=== PATIENT | female | born 1980 | race Caucasian/White ===

== ENCOUNTER 2018-04-15 08:06 | Outpatient (CLI) | payer OTHER ==
--- NOTE | 2018-04-15 11:24 | MRI ---
MRI LUMBAR SPINE: History: Lumbar radiculopathy, M51.17, intervertebral disc disorder. Technique: Multiplanar, multisequence noncontrast enhanced MRI images were obtained of the lumbar spi ne. FINDINGS: For the purposes of this dictation the last freely mobile vertebral body will be considered to be the L5 vertebral body. All vertebral bodies are numbered according to this. There is disc desiccation and a broad based central disc protrusion at the T11-12 level. T12-L1: Unremarkable. L1-2: There is some disc desiccation. There is a mild broad based disc bulge with bilateral facet hyp ertrophy. No significant degree of central stenosis seen. The neural foramen are patent. L2-3 and L3-4: Unremarkable. L4-5: Disc desiccation is seen. There is a broad based disc bulge with bilateral facet and ligamentum flavum hypertrophy. This results in a moderate degree of central and lateral recess stenosis. Mild b ilateral neural foraminal narrowing is seen. L5-S1: Mild facet hypertrophy is seen. Incidentally noted left ovarian cyst or cystic lesion is seen with the diameter measuring approximate ly 2.5 x 2.1 cm. Correlation with pelvic sonography may be of use. In addition, correlation with foll ow up sonographic evaluation in 3-4 months to evaluate for left ovary lesion resolution is recommende d. IMPRESSION: Disc degenerative and desiccation with broad based disc bulges at T11-12, L1-2, and L4-5 levels. POS: TOÑA
== END 2018-04-15 08:07 | disposition home or self-care (01) ==
LOC: SCSMRI 08:06
PROVIDERS: ATTEND Specialist
DX: M51.17 Intervertebral disc disorders with radiculopathy, lumbosacral region (principal); M51.15 Intervertebral disc disorders with radiculopathy, thoracolumbar region
CPT/HCPCS: 72148

== ENCOUNTER 2018-11-11 08:11 | Outpatient (CLI) | payer OTHER ==
--- NOTE | 2018-11-11 09:10 | RAD ---
CERVICAL SPINE SERIES THREE VIEWS WITH FLEXION AND EXTENSION: HISTORY: Neck pain. FINDINGS: The vertebral bodies are normal in height. Very minimal disk narrowing is seen at C5-C6. In flexion , there is no anterolisthesis, although the widening is most pronounced at the C5-C6 level, and exten anastacio of very subtle retrolisthesis develops at the C5-C6 level. IMPRESSION: Minimal disk narrowing at C5-C6. The center of flexion appears to be at this level, with more promin ent movement of the facet joint at this level, but no anterolisthesis. In extension, there is very m inimal retrolisthesis that develops. POS: [facility]
== END 2018-11-11 08:12 | disposition home or self-care (01) ==
LOC: RAD 08:11
PROVIDERS: ATTEND Nurse Practitioner Family
DX: M50.122 Cervical disc disorder at C5-C6 level with radiculopathy (principal)
CPT/HCPCS: 72040

== ENCOUNTER 2019-07-03 11:10 | Outpatient (CLI) | payer OTHER ==
--- NOTE | 2019-07-03 13:55 | RAD ---
RIGHT HAND 3 VIEWS: DATE: 07/03/2019. COMPARISON: None. HISTORY: Pain in the right 2nd metacarpal for a month. FINDINGS: No displaced fracture or evidence of dislocation. No radiopaque foreign body or subcutaneous gas. M ild degenerative change noted at the 2nd metacarpophalangeal joint. Punctate density is seen distal to the ulnar styloid which may represent a remote fracture fragment. IMPRESSION: No acute fracture or dislocation. POS: OFF
== END 2019-07-03 11:11 | disposition home or self-care (01) ==
LOC: RAD 11:10
PROVIDERS: ATTEND Family Medicine
DX: M79.641 Pain in right hand (principal)

== ENCOUNTER 2019-07-24 09:30 | Outpatient (CLI) | payer OTHER ==
--- NOTE | 2019-07-24 13:04 | MRI ---
MRI RIGHT HAND: DATE: 07/24/2019. PROVIDED CLINICAL HISTORY: Right index finger pain and palpable abnormality. FINDINGS: There is a circumscribed focus of true fluid signal intensity at the volar margin of the 2nd metacarp al base at the level of the 2nd CMC joint. This measures approximately 7 mm in greatest transverse d imension and approximately 7 mm in craniocaudal dimension. This is interposed between the volar charity ex of the base of the 2nd metacarpal and the flexor pollicis longus tendon. Regional marrow and muscular signal all appear normal. The dorsal extensor and volar flexor tendons demonstrate an intact MR appearance. No regional joint effusion is evident. The MCP and IP joints a ppear normal. IMPRESSION: Findings compatible with ganglion cyst at the volar aspect of the 2nd carpometacarpal joint. POS: OFF
== END 2019-07-24 09:31 | disposition home or self-care (01) ==
LOC: SCSMRI 09:30
PROVIDERS: ATTEND Orthopaedic Surgery Hand Surgery
DX: S66.510A Strain of intrinsic muscle, fascia and tendon of right index finger at wrist and hand level, initial encounter (principal); S53.439A Radial collateral ligament sprain of unspecified elbow, initial encounter; D17.21 Benign lipomatous neoplasm of skin and subcutaneous tissue of right arm

== ENCOUNTER 2020-01-04 08:49 | Outpatient (CLI) | payer OTHER ==
--- NOTE | 2020-01-04 10:02 | MRI ---
MRI RIGHT KNEE PERFORMED WITHOUT CONTRAST ENHANCEMENT: Date: 01/04/2020 HISTORY: Posterior right knee pain. FINDINGS: The anterior and posterior cruciate ligaments are intact. The medial, as well as lateral menisci are normal in shape and appearance. The medial and lateral collateral ligaments, and iliotibial band regions appear unremarkable. Patellar articular cartilage shows some slight articular cartilage fibrillation of the lateral facet of the patella near the apex of the patella. Some minimal surface irregularity. The medial and latera l patellar retinaculum and quadriceps and patellar tendons are normal. IMPRESSION: 1. No evidence of meniscal or cruciate ligament injury. 2. Some minimal articular surface irregularity to the lateral facet of the patella. POS: [facility]
== END 2020-01-04 08:50 | disposition home or self-care (01) ==
LOC: SCSMRI 08:49
PROVIDERS: ATTEND Orthopaedic Surgery
DX: M25.561 Pain in right knee (principal); M89.8X6 Other specified disorders of bone, lower leg

== ENCOUNTER 2020-03-01 08:30 | Outpatient (CLI) | payer OTHER ==
--- NOTE | 2020-03-01 09:38 | MRI ---
MRI Cervical spine without contrast: HISTORY: Neck pain with numbness of left arm. Cervical radicular pain. COMPARISON: None FINDINGS: The craniocervical junction is unremarkable. No significant cord signal abnormality. Paravertebral soft tissues have a normal appearance and normal signal intensity. Horizontal linear signal intensity focus is seen at the junction of the odontoid with C2 vertebral martita dy most compatible with synchondrosis. Normal signal intensity is otherwise demonstrated in the bone marrow. There is straightening of the normal cervical lordotic curvature which may be related to positioning or muscle spasm. C1-2:No significant stenosis. C2-3: There is no disc bulge or disc herniation. The central spinal canal and neural foramina are pat ent. C3-4: There is no disc bulge or disc herniation. The central spinal canal and neural foramina are pat ent. C4-5: There is no disc bulge or disc herniation. The central spinal canal and neural foramina are pat ent. C5-6: Mild loss of intervertebral disc height. Broad-based disc osteophyte complex is present with ri ght paracentral disc protrusion/uncinate process hypertrophy. Findings result in effacement of the ventral subarachnoid space with mild encroachment on the anterior aspect of the spinal cord. Mild dillon ateral neural foraminal narrowing is present greater on the left. C6-7: Mild broad-based disc osteophyte complex narrowing the ventral subarachnoid space with slight f lattening of the anterior aspect of the spinal cord. Neural foramina are patent. C7-T1: There is no disc bulge or disc herniation. The central spinal canal and neural foramina are pa tent. IMPRESSION: Mild disc degenerative changes at the C5-6 and C6-7 levels.
== END 2020-03-01 08:31 | disposition home or self-care (01) ==
LOC: SCSMRI 08:30
PROVIDERS: ATTEND Neurological Surgery
DX: M47.22 Other spondylosis with radiculopathy, cervical region (principal)
CPT/HCPCS: 72141

== ENCOUNTER 2020-03-04 06:49 | Outpatient (CLI) | payer OTHER ==
[2020-03-04 16:58] LABS: #Lymphocytes 2.1 thou/uL (1.20-3.40); #Monocytes 0.7 thou/uL (0.11-0.59); #Neutrophils 8.3 thou/uL (1.40-6.50); %Basophils 0.4 % (0.0-1.0); %Eosinophils 0.4 % (0.0-10.0); %Lymphocytes 18.5 % (21.0-51.0); %Monocytes 5.9 % (0.0-10.0); %Neutrophils 74.8 % (42.0-75.0); Mean Corpuscular HGB CONC 31.2 g/dL (32.0-36.0); Mean Corpuscular Hemoglobin 29.4 pg (27.0-31.0); Mean Corpuscular Volume 94.2 fL (78.0-98.0); Mean Platelet Volume 8.5 fL (7.4-10.4); Platelet Count 261 thou/uL (130-400); RBC Distribution Width 12.2 % (11.5-14.5); Red Blood Cell (RBC) Count 5.11 mill/uL (4.20-5.40); White Blood Cell (WBC) Count 11.1 thou/uL (4.8-10.8)
[2020-03-04 17:02] LABS: BHCG - Serum Negative (NEGATIVE); Pregs Control Background? CLEAR/WHITE (CLR/WHITE); Pregs Control Bar Appear? YES (CONTROL BAR)
[2020-03-04 17:08] LABS: Bacteria/HPF None Seen HPF (None Seen); Bilirubin Negative (Negative); Blood, Urine Negative (Negative); Clarity Clear (Clear); Glucose, Urine (Dipstick) Normal (Negative); Leukocyte Negative Leu/uL (Negative); Mucous/LPF Rare LPF (<2+); Nitrite Negative (Negative); Protein, Urine (Dipstick) Negative (Neg-Trace); RBC/HPF 0-3 HPF (0-3); Squamous Epithelial 0-3 HPF (0-3); Urobilinogen Normal mg/dL (Less than 2); WBC/HPF 0-3 HPF (0-3)
[2020-03-05 17:22] LABS: SARS-CoV-2 MS2 Positive; SARS-CoV-2 N Gene Negative; SARS-CoV-2 S Gene Negative; SARS-CoV-2 orf1ab Negative
== END 2020-03-04 06:50 | disposition home or self-care (01) ==
LOC: LABBT 06:49
PROVIDERS: ATTEND Orthopaedic Surgery Hand Surgery
DX: Z01.812 Encounter for preprocedural laboratory examination (principal); Z11.59 Encounter for screening for other viral diseases; G56.01 Carpal tunnel syndrome, right upper limb; M67.431 Ganglion, right wrist
CPT/HCPCS: 81001; 84703; 85025; 87635; U0003

== ENCOUNTER 2020-03-08 06:26 | Day surgery (SDC) | payer OTHER ==
[2020-03-04 15:00] VITALS: BMI 36.0
[2020-03-08] MEDS ORDERED: Bupivacaine PF 0.5% 30 ML VIAL ONE (08:19)
[2020-03-08] MEDS ORDERED: Bacitracin Zinc Ointment 30 gm TUBE ONE (08:19)
[2020-03-08] MEDS ORDERED: Betamet Acet/Betamet Na Ph 30 MG/5 ML VIAL ONE (08:19)
[2020-03-08] MEDS ORDERED: Fentanyl 100 MCG/2 ML VIAL ONE (08:20)
[2020-03-08] MEDS ORDERED: Midazolam HCl 2 mg/2 ml Vial ONE (08:34)
[2020-03-08] MEDS ORDERED: Famotidine/PF 20 mg/2ml Vial ONE (08:41)
[2020-03-08] MEDS ORDERED: Ketorolac Tromethamine 30 MG/ML VIAL ONE ×2 (10:18→12:46)
[2020-03-08] MEDS ORDERED: Dexamethasone 20 MG/5 ML VIAL ONE (12:46)
[2020-03-08] MEDS ORDERED: PHENYLEPHRINE-NS 100 MCG/ML 10 ML SYRINGE ONE (12:46)
[2020-03-08] MEDS ORDERED: Ondansetron PF 4 MG/2 ML Vial ONE (12:46)
[2020-03-08] MEDS ORDERED: PROPOFOL 200 MG/20 ML VIAL ONE (12:46)
--- NOTE | 2020-03-08 14:03 | OP ---
DATE OF PROCEDURE: 03/08/2020 PREOPERATIVE DIAGNOSIS: Right carpal tunnel syndrome. POSTOPERATIVE DIAGNOSIS: Right carpal tunnel syndrome with thickened palmar fascia overlying the digital nerve branches to the thumb and median motor branch, but no evidence of mass seen to include subcutaneous intramuscular or perineural. PROCEDURES PERFORMED: 1. Palmar fascia release. 2. Carpal tunnel release. 3. Right thumb and index finger digital nerve neuroplasty. ESTIMATED BLOOD LOSS: 10 mL. TOURNIQUET TIME: 23 minutes. FINDINGS: Again, thickened palmar fascia with median nerve compression in the center portion of the carpal tunnel seen and no masses seen in the area of the patient's complaint of the mass documented preoperatively today in the preoperative suite. INJECTABLE: 15 mL of 0.5% Marcaine (10 given before surgery and 5 given after wound closed) and 5 mL of Celestone drip along the median nerve within the carpal tunnel and the digital nerve branches after neuroplasty. DESCRIPTION OF PROCEDURE: After successful general endotracheal anesthesia, the limb was prepped and draped. We had outlined prior to prepping and draping and performed a time-out the area using 90-degree reference lines to where she had felt the mass and where she had some palpable tenderness. She also continued to have Durkan positive and Tinel's preoperatively. We outlined a standard carpal tunnel incision, beginning as far distal as Lang's cardinal line, in line with the ring finger for approximately 5 mm distal to the volar wrist flexion crease. We also outlined the area of the greatest tenderness, and where she felt she had seen the mass over a prolonged time period. There was a 1 cm area between these 2. We then exsanguinated the limb, inflated tourniquet to 250 mmHg pressure, and gave the first 10 mL of Marcaine. We then entered the carpal tunnel incision, which we made slightly curved radially in order to have an extensile approach to the area of the mass by her own recollection and history and physical exam. After we had entered the skin, we carried through skin and subcutaneous tissue, identified the palmar fascia and the palmaris tendon terminal aspect, into the fascia and then carried through the fascia until we saw the initial flexor tendons and the median nerve. We then opened the fascia from midportion distally, visualizing the motor branch, which was intertendinous. We then released the transcarpal ligament from the midportion distally under direct visualization using combination of [place] blade and tenotomy scissors. It was here when we saw a small amount of stippling median nerve, but no hourglass formation. We then made a separate incision about 12 to 15 mm long, carried through skin and subcutaneous tissue, dissected through the palmar fascia, which was very thick, and we released this, excised the small 3-mm portion. We then dissected down through the edge of the thenar muscle and saw no mass, and then because we did not see a mass, we decided to extend the incision to connect it through the 1 cm skin bridge. Now, we then performed a neuroplasty of the digital nerves to the thumb and index finger, lifted them to make sure there was no mass underneath it, there was none, gently returning them to the bed. Because we did not see any mass subcutaneously, we believe that the thickened palmar fascia was the source of her pain here and her recurrent complaint of once the small amount of this was removed, we had spared the motor branch and well the digital nerves and we placed Celestone here. We released the tourniquet, obtained hemostasis. We closed the incision with interrupted 4-0 nylon in a mattress pattern except for at the zigzag which was simple. We gave additional 5 mL of 0.5% Marcaine and applied a soft bulky dressing. The patient left the operating room without evidence of anesthetic or operative complication. Job ID: [id number]
== END 2020-03-08 11:35 | disposition home or self-care (01) ==
LOC: SDC 06:26
PROVIDERS: ATTEND Orthopaedic Surgery Hand Surgery
PROC: 01N50ZZ Release Median Nerve, Open Approach (ICD-10-PCS; principal; 2020-03-08)
DX: M72.0 Palmar fascial fibromatosis [Dupuytren] (principal); G56.01 Carpal tunnel syndrome, right upper limb; J45.909 Unspecified asthma, uncomplicated; K58.9 Irritable bowel syndrome, unspecified; I73.00 Raynaud's syndrome without gangrene; Z79.899 Other long term (current) drug therapy; Z88.5 Allergy status to narcotic agent; Z88.6 Allergy status to analgesic agent; Z88.8 Allergy status to other drugs, medicaments and biological substances
CPT/HCPCS: J0690; J0702; J1100; J1885; J2250; J2405; J2704; J3010; J3370; S0020; S0028

== ENCOUNTER 2020-06-15 07:43 | Outpatient (CLI) | payer OTHER ==
--- NOTE | 2020-06-15 09:59 | MRI ---
MRI UPPER EXTREMITY JOINT RIGHT WITHOUT CONTRAST: DATE: 06/15/2020 12:00 AM. INDICATION: Pain along the volar and ulnar aspect of the right distal wrist. COMPARISON: None. FINDING: Surface marker was placed over the region of pain involving the right wrist. The surface marker was p laced overlying the flexor carpi ulnaris tendon, near its attachment to the pisiform. There is very mild edema seen within the FCL tendon sheath. No full-thickness disruption is evident. The carpal reji jose l and its contents are normal appearing. There is a 1.6 x 0.6 cm periarticular ganglion protruding from the volar margin of the mid carpal joint on image 19 of series 5 and image 9 of serie s 8. This is extending up the volar distal aspect of the carpal bones along the volar aspect of the hand at the level of the index metacarpal base. This is also well seen on image 11 of series 10. No l arge joint effusion is evident. The visualized TFC and intrinsic and extrinsic ligaments of the wrist are intact. The median nerve is normal-appearing. The ulnar neural vasculature appears within n ormal limits. The extensor tendons of the wrist appear within normal limits. No bone marrow signal abnormality is evident. IMPRESSION: 1. Mild flexor carpi ulnaris tenosynovitis. 2. Small dissecting periarticular ganglion extending from the mid carpal joint along the volar aspect of the wrist terminating at the base of the second metacarpal. Transcribed Date/Time: 06/15/2020 10:37 AM
== END 2020-06-15 07:44 | disposition home or self-care (01) ==
LOC: SCSMRI 07:43
PROVIDERS: ATTEND Orthopaedic Surgery Hand Surgery
DX: S62.15 Fracture of hook process of hamate [unciform] bone (principal); M65.9 Synovitis and tenosynovitis, unspecified

== ENCOUNTER 2020-09-22 07:57 | Outpatient (CLI) | payer OTHER ==
[2020-09-22 16:43] LABS: #Basophils 0.1 10x3/uL (0.0-0.2); #Monocytes 0.6 10x3/uL (0.0-1.1); #Neutrophils 6.9 10x3/uL (1.5-8.4); %Basophils 0.5 % (0.0-2.0); %Eosinophils 0.4 % (0.0-6.0); %Lymphocytes 22.2 % (18.0-47.0); %Monocytes 5.9 % (0.0-10.0); %Neutrophils 70.6 % (40.0-75.0); Hemoglobin 14.8 g/dL (12.0-16.0); Mean Corpuscular HGB CONC 32.5 G/DL (32.0-36.0); Mean Corpuscular Hemoglobin 29.5 PG (27.0-33.0); Mean Corpuscular Volume 90.6 fl (80.0-100.0); Mean Platelet Volume 10.8 fl (7.4-10.4); Platelet Count 304 10x3/uL (130-400); RBC Distribution Width 12.9 % (11.5-14.5); Red Blood Cell (RBC) Count 5.02 10x6/uL (3.90-5.20); White Blood Cell (WBC) Count 9.8 10x3/uL (4.5-11.0)
[2020-09-23 02:03] LABS: SARS-CoV-2 MS2 Positive; SARS-CoV-2 N Gene Negative; SARS-CoV-2 S Gene Negative; SARS-CoV-2 by NAA Not Detected (NotDetected); SARS-CoV-2 orf1ab Negative
== END 2020-09-22 07:58 | disposition home or self-care (01) ==
LOC: LABBT 07:57
PROVIDERS: ATTEND Orthopaedic Surgery Hand Surgery
DX: Z01.812 Encounter for preprocedural laboratory examination (principal); M67.441 Ganglion, right hand; Z20.828 Contact with and (suspected) exposure to other viral communicable diseases
CPT/HCPCS: 85025; 87635; U0003

== ENCOUNTER 2020-09-27 05:54 | Day surgery (SDC) | payer OTHER ==
[2020-09-26 09:11] VITALS: BMI 34.9
[2020-09-27] MEDS ORDERED: Bacitracin Zinc Ointment 30 gm TUBE ONE (06:21)
[2020-09-27] MEDS ORDERED: Betamet Acet/Betamet Na Ph 30 MG/5 ML VIAL ONE (06:21)
[2020-09-27] MEDS ORDERED: Bupivacaine PF 0.5% 30 ML VIAL ONE (06:21)
[2020-09-27] MEDS ORDERED: Sodium Chloride 0.9% 10 ML ONE (06:21)
[2020-09-27] MEDS ORDERED: Fentanyl 100 MCG/2 ML VIAL ONE ×3 (06:39→09:08)
[2020-09-27] MEDS ORDERED: Midazolam HCl 2 mg/2 ml Vial ONE (06:39)
[2020-09-27] MEDS ORDERED: Ketorolac Tromethamine 30 MG/ML VIAL ONE (09:00)
[2020-09-27] MEDS ORDERED: Ondansetron PF 4 MG/2 ML Vial ONE ×2 (09:10→10:01)
[2020-09-27] MEDS ORDERED: Promethazine HCl 25 MG/ML VIAL ONE (09:56)
[2020-09-27] MEDS ORDERED: Dexamethasone 20 MG/5 ML VIAL ONE (10:01)
[2020-09-27] MEDS ORDERED: PROPOFOL 200 MG/20 ML VIAL ONE (10:01)
[2020-09-27] MEDS ORDERED: Lidocaine 1% PF 5 ML VIAL ONE (10:01)
--- NOTE | 2020-09-28 08:17 | OP ---
DATE OF PROCEDURE: 09/27/2020 PREOPERATIVE DIAGNOSIS: Mass, right palm in line with the level of Lang's cardinal line. FINDINGS: A mass consistent with lipoma and very thickened palmar fascia over this. PROCEDURES PERFORMED: 1. Excisional biopsy, lipoma 1.0 cm in the palmar region described above. 2. Excisional biopsy, palmar fascia, possible early Dupuytren's cord via fasciectomy. 3. Digital nerve neuroplasty of the index finger, radial aspect, ulnar and radial thumb with maintenance of neurovascular structures. COMPLICATIONS: None. TOURNIQUET TIME: 18 minutes. ESTIMATED BLOOD LOSS: Less than or equal to 10 mL. INJECTABLES: 20 mL of 0.5% Marcaine. No epinephrine. DESCRIPTION OF PROCEDURE: After successful general endotracheal anesthesia, limb prepped and draped. We marked the area where the MRI and the patient showed the mass that was causing problems intermittently. We exsanguinated the limb and inflated the tourniquet to 250 mmHg. We extended in a Cony fashion the previous zigzag incision until the very distal end was up to the level of the index volar digit MP joint flexion crease. Immediately on dissecting out the skin, we saw a very thick palmar fascia. We excised this as far as we could see, protected all the nerves to include the ulnar side of the . Once we had performed the neuroplasty and removed the palmar fascial thickening, we pulled back all layer of muscles individually in the thenar region. We saw a lipomatous eruption beginning on the ulnar aspect of the branches to the digital nerve, radial aspect. This was excised en bloc after removing the fascial thickening. No other mass was seen with thorough inspection. We placed Celestone in the bed of the 2 lesions and once hemostasis obtained and tourniquet deflated, closed the incision with interrupted 4-0 nylon in a mattress pattern. Patient left the operating room without evidence of anesthetic or operative complications. Job ID: [id number]
== END 2020-09-27 10:45 | disposition home or self-care (01) ==
LOC: SDC 05:54
PROVIDERS: ATTEND Orthopaedic Surgery Hand Surgery
PROC: 0JNK0ZZ Release Left Hand Subcutaneous Tissue and Fascia, Open Approach (ICD-10-PCS; principal; 2020-09-27)
PROC: 0JBK0ZZ Excision of Left Hand Subcutaneous Tissue and Fascia, Open Approach (ICD-10-PCS; principal; 2020-09-27)
DX: M79.89 Other specified soft tissue disorders (principal); D17.21 Benign lipomatous neoplasm of skin and subcutaneous tissue of right arm; J45.909 Unspecified asthma, uncomplicated; I73.00 Raynaud's syndrome without gangrene; M79.7 Fibromyalgia; Z79.899 Other long term (current) drug therapy; Z88.5 Allergy status to narcotic agent; Z88.6 Allergy status to analgesic agent; Z88.8 Allergy status to other drugs, medicaments and biological substances
CPT/HCPCS: 88304; 88305; J0690; J0702; J1100; J1885; J2250; J2405; J2550; J2704; J3010; J3490; S0020